=== PATIENT | male | born 1975 | race Caucasian/White ===

== ENCOUNTER 2018-08-18 12:01 | Emergency (ER) | payer OTHER, SELFPAY ==
--- NOTE | 2018-08-18 12:09 | DI.RAD.S_ITS ---
PROCEDURE: XR CHEST 2V INDICATIONS: injury pain TECHNIQUE: 2 views of the chest were acquired. COMPARISON: [facility], , CHEST 1 VIEW, 10/15/2017, 11:35. FINDINGS: Surgical changes and devices: None. Lungs and pleura: No pleural effusions or pneumothorax. Lungs are clear. Mediastinum: Mediastinal contours are normal. Heart size is normal. Bones and chest wall: There is a comminuted mid-diaphyseal left clavicular fracture. There is an acute left second rib fracture with mild inferior displacement of the distal fracture fragment. IMPRESSION: Acute left clavicular and left second rib fractures. No convincing evidence of pneumothorax identified. Dictated by: Adal Bear M.D. on 08/18/2018 at 12:49 Approved by: Adal Bear M.D. on 08/18/2018 at 12:51
--- NOTE | 2018-08-18 12:09 | DI.RAD.S_ITS ---
PROCEDURE: XR CLAVICLE LT INDICATIONS: injury pain TECHNIQUE: 2 views of the clavicle were acquired. COMPARISON: None. FINDINGS: Bones: Acute comminuted mid-diaphyseal left clavicular fracture with inferior displacement and foreshortening of the distal fracture fragments. Soft tissues: No suspicious soft tissue calcifications. IMPRESSION: Acute comminuted mid-diaphyseal left clavicular fracture with inferior displacement and foreshortening of the distal fracture fragments. Dictated by: Adal Bear M.D. on 08/18/2018 at 12:27 Approved by: Adal Bear M.D. on 08/18/2018 at 12:28
[2018-08-18 12:22] VITALS: BP 128/90; PULSE 101; RESP 18; TEMP 36.2; O2SAT 99; BMI 24.3
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
--- NOTE | 2018-08-18 12:32 | PC.NURSE ---
States hurts to breathe. Denies neck pain or neuro symptoms
[2018-08-18] MEDS: KETOROLAC 60 MG/2 ML VIAL IM (12:43)
[2018-08-18 13:05] VITALS: BP 126/82; PULSE 92; RESP 15; O2SAT 97
== END 2018-08-18 13:09 | disposition home or self-care (01) ==
PROVIDERS: Emergency Provider Emergency Medicine; PCP Family Medicine
DX: S42.002A Fracture of unspecified part of left clavicle, initial encounter for closed fracture (principal); S22.32XA Fracture of one rib, left side, initial encounter for closed fracture; V18.2XXA Unspecified pedal cyclist injured in noncollision transport accident in nontraffic accident, initial encounter; Y93.55 Activity, bike riding
CPT/HCPCS: 71046; 73000; 96372; 99282; 99283; J1885

== ENCOUNTER 2018-08-26 09:39 | Day surgery (SDC) | payer OTHER, SELFPAY ==
[2018-08-21 13:59] VITALS: BMI 24.3
[2018-08-26] VITALS (8 sets, daily range): BP systolic 113–135; BP diastolic 81–89; PULSE 70–87; RESP 15–16; TEMP 36.2–37.1; O2SAT 96–100; BMI 24.3
[2018-08-26] MEDS: LACTATED RINGERS 1,000 ML 42 ML IV (10:28)
[2018-08-26] MEDS: MIDAZOLAM 2 MG/2 ML VIAL IV (12:16)
--- NOTE | 2018-08-26 12:23 | SUR.PREOP ---
Block start time [1220] . Monitoring initiated and maintained throughout procedure. Oxygen and medications given per anesthesiologist instructions. Patient remained stable throughout procedure, no adverse reactions noted. Block end time [1225].
[2018-08-26] MEDS: CEFAZOLIN 2 GM/100 ML FROZ.PIGGY IV (12:32)
--- NOTE | 2018-08-26 13:09 | SUR.OPER ---
Beach chair with Jayesh/Yassine shoulder positioner. Lower body on padded OR bed. Head in foam padded head cradle, secured with straps. Non-operative arm secured <90 degrees abduction. Pillow under knees. Safety belt at thigh. Cloth tape over blanket over lower legs.
[2018-08-26] MEDS: BUPIVACAINE 0.5% W/ EPI (PF) VIAL 30 ML INJ (13:18)
--- NOTE | 2018-08-26 14:16 | PM.PREOP ---
Pre-operative Note Interval Note Pre-op Check: Yes History & Physical Reviewed by Physician Changes: No
--- NOTE | 2018-08-26 14:29 | PM.OP.1 ---
Operative Date/Time/Diagnoses Date of procedure: 08/26/18 Time of procedure: 12:29 Pre-op diagnosis: left clavicle fracture Post-op diagnosis: same Procedure & Clinicians Procedure: open reduction internal fixation of a left clavicle fracture Same procedure as scheduled: Yes Indications: displaced comminuted left clavicle fracture Surgeon: Randall Duarte Maintenance Supervisor 2Nd Shift: Bridget Colón Anesthesia Type: General and Peripheral nerve block Operative Notes Findings: displaced comminuted midshaft clavicle fracture with 2 butterfly fragments. Closure Type: primary Implants & Drains: Clavicle plate, Arthrex Applied: implant(s) Estimated Blood Loss (mL): 30 Blood products transfused: none Procedure in detail: On date of service, patient was met in the holding area. Operative site was signed and witnessed by the OR staff. The surgery once again discussed with patient and any remaining questions they had were answered fully. Patient was taken back to the operating theater and placed on the operating table in the supine position. Great care taken to ensure that all bony prominences were properly padded. Patient was placed into the beachchair position with his head and neck appropriately positioned and secured. A timeout was performed to verify patient's name, procedure, and operative site. The upper extremity was then prepped and draped in the normal sterile fashion. A 10 blade was used to make an incision along the length of the clavicle. The incision was centered over the fracture. 10 blade was used to incise the skin and fascial tissue. Great care was taken to protect the clavicular nerve branches. Thick fascial flaps were made allowing us to expose the clavicle. These flaps will be used to eventually Cover over the plate. Once we had good visualization of the clavicle fracture, the curette and rongeur were used to clean up the bony ends. The arm was then elevated to help reduce the distal fragment to the medial fragment. Combination of reduction forceps and crab claw was used to remove a fracture out to length and reduced it. patient had 2 large butterfly fragments that were completely displaced. These were reduced and held provisionally with a 2 point reduction forceps. K-wires were placed holding them fixated. One to the lateral shaft 1 to the medial shaft. Next, lag screws were placed lagging the butterfly fragments to their shafts. Next, a lag screw was placed across the fracture holding the fracture reduced. The appropriate plate was then placed and secured both Medially and Laterally. Next, the remaining locking screws were placed providing a secure fixation of the clavicle fracture. The wound was then copiously irrigated. The fascial flaps were used to cover over the plate and the rest of the wounds was closed in a layered fashion. The shoulder was then cleaned, dried, and dressed. Complications: none Condition: stable Disposition: PACU Plan for aftercare: Sling just for comfort. No restrictions to range of motion.
[2018-08-26] MEDS: fentaNYL 100 MCG/2 ML INJ 50 MCG IV ×2 (14:53→15:03)
--- NOTE | 2018-08-26 15:31 | SUR.PHASEII ---
assumed care of pt, pt tolerating fluids, no c/o pain, dressing c/d/i. at pharmacy filling prescriptions.
== END 2018-08-26 16:06 | disposition home or self-care (01) ==
PROVIDERS: PCP Family Medicine; Visit Provider Orthopaedic Surgery
PROC: 0PSB04Z Reposition Left Clavicle with Internal Fixation Device, Open Approach (ICD-10-PCS; CPT 23515; principal; 2018-08-26 11:15)
DX: S42.022A Displaced fracture of shaft of left clavicle, initial encounter for closed fracture (principal); S22.32XA Fracture of one rib, left side, initial encounter for closed fracture; Y93.55 Activity, bike riding
CPT/HCPCS: 23515; 64415; J0690; J1100; J2250; J2405; J2704; J3010

== ENCOUNTER 2025-06-28 18:33 | Emergency (ER) | payer OTHER, SELFPAY ==
[2025-06-28 18:37] VITALS: BP 138/91; PULSE 100; RESP 20; TEMP 37; O2SAT 97; BMI 25.1
--- NOTE | 2025-06-28 19:05 | ED.WOUNDLAC ---
HPI - Wound/Laceration General Chief Complaint: Wound/Laceration Stated Complaint: Hook in R Index Finger Time Seen by Provider: 06/28/25 19:03 Source: patient Mode of arrival: Ambulatory History of Present Illness HPI narrative: 50-year-old male sustained fish hook injury to left index finger this afternoon, conner was embedded, unable to remove it. No other injuries. Last tetanus many years ago. Too painful to remove the hook himself. He was able to cut the lower, only 1 single barbed hook imbedded in fingertip. Related Data Home Medications ?Medication ?Instructions ?Recorded ?Confirmed albuterol sulfate 90 mcg/actuation 2 puff inhalation Q4-6H PRN 08/21/18 08/26/18 aerosol inhaler (ProAir HFA) Wheezing albuterol sulfate 90 mcg/actuation 2 puff inhalation Q6H PRN Wheezing 08/21/18 08/26/18 aerosol inhaler (Ventolin HFA) & Coughing fluticasone propionate 50 1 spray intranasal DAILY 08/21/18 08/26/18 mcg/actuation nasal spray,suspension (Flonase Allergy Relief) hydrocodone 5 mg-acetaminophen 325 1 tab PO Q6H PRN Moderate pain 08/21/18 08/26/18 mg tablet lorazepam 1 mg tablet 1 - 2 mg PO BEDTIME PRN Sleep 08/21/18 08/26/18 Previous Rx's ?Medication ?Instructions ?Recorded beclomethasone dipropionate 80 2 puff INH BID #1 inh 07/02/17 mcg/actuation aerosol inhaler (Qvar) hydroxyzine pamoate 25 mg capsule 25 mg PO TID-QID PRN spasms #60 08/26/18 (Vistaril) caps oxycodone-acetaminophen 5 mg-325 2 tab PO Q4-6H PRN pain #60 tabs 08/26/18 mg tablet (Percocet) cephalexin 500 mg capsule 500 mg PO QID 7 days #28 caps 06/28/25 Allergies Allergy/AdvReac Type Severity Reaction Status Date / Time No Known Drug Allergies Allergy Verified 06/28/25 18:37 Patient History Medical History (Updated 06/28/25 @ 19:47 by Henry Jamison MD) Seasonal allergies Sinusitis Folliculitis Depression History of anemia Anxiety Asthma History of hydrocele History of radius fracture Healthy adult Social History household members: spouse Smoking Status: Never smoker Smoking Status: Never smoker Exam Narrative Exam Narrative: GENERAL: Well-developed patient, in mild distress. HEAD: Atraumatic. Normocephalic. EYES: Pupils equal round and reactive. No craniofacial lesions obvious No injection or drainage. ENT: No obvious craniofacial injuries. Airway patent. NECK: Trachea midline. Normal range of motion. CARDIOVASCULAR: Regular rate and rhythm without murmurs, gallops, or rubs. RESPIRATORY: Clear to auscultation. Breath sounds equal bilaterally. No wheezes, rales, or rhonchi. GASTROINTESTINAL: Abdomen non-tender, nondistended. EXTREMITIES: No edema or joint tenderness. Left index finger with fish hook medial aspect conner imbedded BACK: Nontender without deformity or crepitance. No flank tenderness. NEURO: AOx3. Motor functions grossly nonfocal. SKIN: No rash or erythema of visible areas Initial Vital Signs Initial Vital Signs: Vital Signs Temperature 98.6 F 06/28/25 18:37 Pulse Rate 100 H 06/28/25 18:37 Respiratory Rate 20 06/28/25 18:37 Blood Pressure 138/91 H 06/28/25 18:37 Pulse Oximetry 97 06/28/25 18:37 Oxygen Delivery Method Room Air 06/28/25 18:37 Procedures Foreign Body OTHER Time of procedure: 23:30 Foreign Body Removal Site: hand (Left index finger) Description of foreign body: fish hook Sedation/Analgesia: other (Removal after ulises digital block and local block around puncture site, tolerated well.) Technique: removal with forceps Confirmed by:: direct visualization Complications: none Post-procedure exam: awake, alert Course Orders Ordered: Discontinued Medications Bacitracin (Bacitracin Oint 0.9 Gm Pckt) 1 applic TOP NOW ONE Stop: 06/28/25 19:38 Last Admin: 06/28/25 19:51 Dose: 1 applic Documented By: ROMEL Cephalexin HCl (Cephalexin 250 Mg Capsule) 500 mg PO NOW ONE Stop: 06/28/25 19:35 Last Admin: 06/28/25 19:39 Dose: 500 mg Documented By: ROMEL Diphtheria/Tetanus/Acell Pertussis (Tet,Diph,Pertuss(Acell),Vac/Pf 0.5 Ml Syringe) 0.5 ml IM .ONCE ONE Stop: 06/28/25 19:07 Last Admin: 06/28/25 19:24 Dose: 0.5 ml Documented By: ROMEL Ibuprofen (Ibuprofen 400 Mg Tablet) 400 mg PO NOW ONE Stop: 06/28/25 19:35 Last Admin: 06/28/25 19:39 Dose: 400 mg Documented By: ROMEL Lidocaine HCl (Lidocaine 1% 20 Ml) 5 ml SUBCUT NOW ONE Stop: 06/28/25 19:16 Last Admin: 06/28/25 19:29 Dose: 5 ml Documented By: AB Vital Signs Vital signs: Vital Signs - 8 hr 06/28/25 18:37 Temperature 98.6 F Pulse Rate 100 H Respiratory Rate 20 Blood Pressure 138/91 H Pulse Oximetry 97 Oxygen Delivery Method Room Air MDM - Wound/Laceration MDM Narrative Medical decision making narrative: Left index fingertip embedded barbed fishhook, patient unable to remove. Appears to be cut off from lower at stem. My x-ray negative for fracture foreign body. 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 Needle conner intact, no retained foreign body suspected. Tetanus updated. Cephalexin antibiotic given. Prescription for further cephalexin sent to his pharmacy. Wound check advised in 2 days. Flushed irrigated dressed with antibiotic ointment at puncture site. Recheck at PCP in 2 days advised, return precautions discussed. Discharged home with family. Discharge Plan Departure Patient Disposition: Home Clinical Impression: Fish hook in finger Instructions: DI for Laceration Repair Activity Restrictions/Additional Instructions: [place] retained foreign body left index finger, ulises digital block and local injection, removed with forceps, downward pressure and withdrawal to unsafe the conner. Withdrawal of the hook appeared intact, the conner appeared intact from the residual hook. Offered x-ray, declined. Wound irrigation antibiotic ointment. Tetanus shot updated. Concern for possible infection, oral antibiotic cephalexin given, prescription for further antibiotic given. Wound check advised with the regular doctor in the next couple of days. Return to this/nearest emergency department for any change worsening symptoms or any concerns prior. Prescriptions: New cephalexin 500 mg capsule 500 mg PO QID 7 Days Qty: 28 0RF No Action beclomethasone dipropionate [Qvar] 80 MCG/PUFF aerosol 2 puff INH BID Qty: 1 1RF albuterol sulfate [ProAir HFA] 90 mcg/actuation Hfa Aerosol Inhaler 2 puff INHALATION Q4-6H PRN (Reason: Wheezing) hydrocodone-acetaminophen 5-325 mg Tablet 1 tab PO Q6H PRN (Reason: Moderate pain) Rx Instructions: Up to 12 doses lorazepam 1 mg Tablet 1 - 2 mg PO BEDTIME PRN (Reason: Sleep) albuterol sulfate [Ventolin HFA] 90 mcg/actuation Hfa Aerosol Inhaler 2 puff INHALATION Q6H PRN (Reason: Wheezing & Coughing) fluticasone propionate [Flonase Allergy Relief] 50 mcg/actuation [place],Suspension 1 spray INTRANASAL DAILY oxycodone-acetaminophen [Percocet] 5-325 mg tablet 2 tab PO Q4-6H PRN (Reason: pain) Qty: 60 0RF hydroxyzine pamoate [Vistaril] 25 mg capsule 25 mg PO TID-QID PRN (Reason: spasms) Qty: 60 0RF Referrals: Cami Little MD [Primary Care Provider, Family Practice] Stand Alone Forms: Patient Portal/API
[2025-06-28] MEDS: TET,DIPH,PERTUSS(ACELL),VAC/PF 0.5 ML SYRINGE IM (19:24)
[2025-06-28] MEDS: LIDOCAINE 1% 20 ML 5 ML SUBCUT (19:29)
[2025-06-28] MEDS: IBUPROFEN 400 MG TABLET PO (19:39)
[2025-06-28] MEDS: BACITRACIN OINT 0.9 GM PCKT 1 APPLIC TOP (19:51)
== END 2025-06-28 19:57 | disposition home or self-care (01) ==
PROVIDERS: Emergency Provider Emergency Medicine; PCP Family Medicine
DX: S60.451A Superficial foreign body of left index finger, initial encounter (principal); W45.8XXA Other foreign body or object entering through skin, initial encounter; Z23 Encounter for immunization
CPT/HCPCS: 10120; 90471; 99283; 90715